=== PATIENT | male | born 1935 | race Caucasian/White ===

== ENCOUNTER 2016-06-28 08:04 | Emergency (ER) | payer MEDICARE ==
[~2016-06-28] VITALS: Ht 165.1 cm; Wt 63.5 kg
[~2016-06-28 08:04] MED LIST: BABY81CH CHEW; COUM2TAB PO; DORZ1SOL2 OU; LASI20TA PO; LATA0.00 EACH EYE; LISI-360 PO; METO50CR PO; SIMV80TA PO
[2016-06-28 08:05] VITALS: BP 192/79; PULSE 80; RESP 20; TEMP 97.7; O2SAT 99
[2016-06-28] MEDS ORDERED: SODIUM CHLOR 0.9% 1000 ML INJ 1,000 ML IV SCH (08:24)
[2016-06-28] MEDS ORDERED: SODIUM CHLORIDE 0.9% FLUSH 10 ML FLUSH IV FLUSH PRN (08:30)
[2016-06-28] MEDS ORDERED: LISI10TA3 PO (08:33)
[2016-06-28] MEDS ORDERED: COUM2TAB PO (08:33)
[2016-06-28] MEDS ORDERED: FURO1TAB62 PO (08:33)
[2016-06-28] MEDS ORDERED: ASPI1TAB69 PO (08:33)
[2016-06-28 08:54] LABS: AUTOMATED NEUTROPHIL # 3.3 TH/MM3 (1.8-7.7); BASOPHIL % 0.9 % (0.0-2.0); EOSINOPHIL # 0.3 TH/MM3 (0-0.4); EOSINOPHIL % 5.1 % (0.0-4.0); HEMATOCRIT 34.3 % (39.0-51.0); HEMO FLAGS DIFF FINAL; LYMPH % 17.9 % (9.0-44.0); LYMPHOCYTE # 0.9 TH/MM3 (1.0-4.8); MEAN CELL VOLUME 96.4 FL (80.0-100.0); MEAN CORPUSCULAR HEMOGLOBIN 33.2 PG (27.0-34.0); MEAN CORPUSCULAR HGB CONC 34.5 % (32.0-36.0); MONO % 9.1 % (0.0-8.0); PLATELET COUNT 132 TH/MM3 (150-450); RED BLOOD COUNT 3.56 MIL/MM3 (4.50-5.90); RED CELL DISTRIBUTION WIDTH 13.8 % (11.6-17.2); WHITE BLOOD COUNT 4.9 TH/MM3 (4.0-11.0)
[2016-06-28 09:03] LABS: INTERNATIONAL NORMALIZED RATIO 1.1 RATIO; PROTHROMBIN TIME - PATIENT 12.2 SEC (9.8-11.6)
--- NOTE | 2016-06-28 09:03 | PD ---
HPI Chief Complaint: Abdominal Pain Time Seen by Provider: 08:53 Travel History International Travel<30 days: No Contact w/Intl Traveler<30days: No Traveled to known affect area: No History of Present Illness HPI Patient is an 81-year-old male who presents to emergency room with complaints of abdominal pain. Patient reports that for the past week, he has been having intermittent right lower quadrant abdominal pain, reports that when he has these symptoms, symptoms feel like a sharp and stabbing sensation which last for a few seconds at a time and resolves on its own. Patient denies any fevers or chills. Patient denies any nausea or vomiting. Patient denies constipation or diarrhea, reports that he did have a normal bowel movement today. Patient denies dysuria, urinary urgency or frequency or hematuria. Denies any trauma to his abdomen. PFSH Past Medical History Blood Disorders: No Heart Rhythm Problems: Yes (A-FIB) Cancer: No Cardiovascular Problems: Yes (PACEMAKER) High Cholesterol: Yes Chest Pain: Yes Congestive Heart Failure: No Cerebrovascular Accident: No Diabetes: No Endocrine: Yes Gastrointestinal Disorders: No GERD: Yes Glaucoma: Yes Genitourinary: No Hepatitis: No Hiatal Hernia: No Hypertension: Yes Immune Disorder: No Musculoskeletal: No Neurologic: No Psychiatric: No Reproductive: No Respiratory: No Migraines: No Myocardial Infarction: Yes Seizures: No Sleep Apnea: Yes (POSS. SLEEP APNEA/NEVER HAD WORK UP/NO CPAP) Thyroid Disease: No Past Surgical History Abdominal Surgery: No AICD: Yes (MEDTRONIC) Arteriovenous Shunt: No Cardiac Surgery: Yes (CABG, AVR, AICD IMPL.) Ear Surgery: No Endocrine Surgery: No Eye Surgery: Yes (RIGHT EYE CATARACT EXTRACT) Genitourinary Surgery: No Gynecologic Surgery: No Insulin Pump: No Joint Replacement: No Oral Surgery: No Pacemaker: No Thoracic Surgery: No Social History Alcohol Use: Yes Tobacco Use: No (SMOKED 2 PKS. CIGS [id number] QUIT 1994) Substance Use: No Allergies-Medications (Allergen,Severity, Reaction): Coded Allergies: No Known Allergies (Verified , 06/28/16) Reported Meds & Prescriptions Reported Meds & Active Scripts Active Reported Lisinopril 10 Mg Tab 10 Mg PO DAILY Lasix (Furosemide) 20 Mg Tab 20 Mg PO DAILY Coumadin (Warfarin) 2 Mg Tab 2 Mg PO DAILY Aspirin 81 Mg Tabdr 81 Mg PO DAILY Review of Systems General / Constitutional: No: Fever Eyes: No: Visual changes HENT: No: Headaches Cardiovascular: No: Chest Pain or Discomfort Respiratory: No: Shortness of Breath Gastrointestinal: Positive: Abdominal Pain, No: Nausea, Vomiting, Diarrhea, Constipation Genitourinary: No: Urgency, Frequency, Dysuria, Nocturia, Hematuria, Hesitancy , Flank Pain, Discharge Musculoskeletal: No: Pain Skin: No Rash Neurologic: No: Weakness Psychiatric: No: Depression Endocrine: No: Polydipsia Hematologic/Lymphatic: No: Easy Bruising Physical Exam Narrative GENERAL: No acute distress, nontoxic SKIN: Focused skin assessment warm/dry. HEAD: Atraumatic. Normocephalic. EYES: Pupils equal and round. No injection or drainage. ENT: No nasal bleeding or discharge. Mucous membranes pink and moist. NECK: Trachea midline. No JVD. CARDIOVASCULAR: Regular rate and rhythm. No murmur appreciated. RESPIRATORY: No accessory muscle use. Clear to auscultation. Breath sounds equal bilaterally. GASTROINTESTINAL: Abdomen soft, mildly tender to right lower quadrant, no peritoneal signs MUSCULOSKELETAL: No obvious deformities. No clubbing. No cyanosis. No edema. NEUROLOGICAL: Awake and alert. No obvious cranial nerve deficits. Motor grossly within normal limits. Normal speech. PSYCHIATRIC: Appropriate mood and affect; insight and judgment normal. Data Data Last Documented VS Vital Signs Date Time Temp Pulse Resp B/P Pulse Ox O2 Delivery O2 Flow Rate FiO2 06/28/16 10:00 97.8 72 17 157/78 99 Room Air Orders Complete Blood Count With Diff (06/28/16 08:24) Comprehensive Metabolic Panel (06/28/16 08:24) Lipase (06/28/16 08:24) Prothrombin Time / Inr (Pt) (06/28/16 08:24) Act Partial Throm Time (Ptt) (06/28/16 08:24) Urinalysis - C+S If Indicated (06/28/16 08:24) Iv Access Insert/Monitor (06/28/16 08:24) Ecg Monitoring (06/28/16 08:24) Sodium Chlor 0.9% 1000 Ml Inj (Ns 1000 M (06/28/16 08:24) Sodium Chloride 0.9% Flush (Ns Flush) (06/28/16 08:30) Ct Abd/Pel W Iv Contrast(Rout) (06/28/16 08:58) Iohexol 350 Inj (Omnipaque 350 Inj) (06/28/16 10:51) Labs Laboratory Tests Test 06/28/16 06/28/16 08:30 10:00 White Blood Count 4.9 TH/MM3 Red Blood Count 3.56 MIL/MM3 Hemoglobin 11.8 GM/DL Hematocrit 34.3 % Mean Corpuscular Volume 96.4 FL Mean Corpuscular Hemoglobin 33.2 PG Mean Corpuscular Hemoglobin 34.5 % Concent Red Cell Distribution Width 13.8 % Platelet Count 132 TH/MM3 Mean Platelet Volume 8.0 FL Neutrophils (%) (Auto) 67.0 % Lymphocytes (%) (Auto) 17.9 % Monocytes (%) (Auto) 9.1 % Eosinophils (%) (Auto) 5.1 % Basophils (%) (Auto) 0.9 % Neutrophils # (Auto) 3.3 TH/MM3 Lymphocytes # (Auto) 0.9 TH/MM3 Monocytes # (Auto) 0.5 TH/MM3 Eosinophils # (Auto) 0.3 TH/MM3 Basophils # (Auto) 0.0 TH/MM3 CBC Comment DIFF FINAL Differential Comment Prothrombin Time 12.2 SEC Prothromb Time International 1.1 RATIO Ratio Activated Partial 27.0 SEC Thromboplast Time Sodium Level 140 MEQ/L Potassium Level 4.0 MEQ/L Chloride Level 107 MEQ/L Carbon Dioxide Level 24.6 MEQ/L Anion Gap 8 MEQ/L Blood Urea Nitrogen 19 MG/DL Creatinine 1.48 MG/DL Estimat Glomerular Filtration 46 ML/MIN Rate Random Glucose 111 MG/DL Calcium Level 9.1 MG/DL Total Bilirubin 1.4 MG/DL Aspartate Amino Transf 22 U/L (AST/SGOT) Alanine Aminotransferase 16 U/L (ALT/SGPT) Alkaline Phosphatase 128 U/L Total Protein 7.6 GM/DL Albumin 4.0 GM/DL Lipase 352 U/L Urine Color YELLOW Urine Turbidity CLEAR Urine pH 6.0 Urine Specific [place] 1.014 Urine Protein TRACE mg/dL Urine Glucose (UA) NEG mg/dL Urine Ketones NEG mg/dL Urine Occult Blood NEG Urine Nitrite NEG Urine Bilirubin NEG Urine Urobilinogen LESS THAN 2.0 MG/DL Urine Leukocyte Esterase NEG Urine RBC 1 /hpf Urine WBC 1 /hpf Urine Hyaline Casts 4 /lpf Urine Mucus FEW /lpf Microscopic Urinalysis Comment CULT NOT INDICATED MDM Medical Decision Making Medical Screen Exam Complete: Yes Emergency Medical Condition: Yes Interpretation(s) Vital Signs Date Time Temp Pulse Resp B/P Pulse Ox O2 Delivery O2 Flow Rate FiO2 06/28/16 08:05 97.7 80 20 192/79 99 Room Air Differential Diagnosis Appendicitis, gastroenteritis, colitis, diverticulitis, electrolyte abnormality Narrative Course Patient is an 81-year-old male who presents to emergency room with complaints of right lower quadrant abdominal pain for the past week. Patient reports that he's been having intermittent pain to right lower quadrant, reports no nausea, vomiting or diarrhea symptoms. Denies any dysuria, urinary urgency or frequency. Patient reports that when he has these pains, this takes his breath away. Patient comfortable at this time. Plan to lab work including a CT of his abdomen and pelvis to evaluate etiology of abdominal pain. Plan to hydrate patient and give antiemetics. Will continue to monitor patient Laboratory Tests Test 06/28/16 06/28/16 08:30 10:00 White Blood Count 4.9 TH/MM3 (4.0-11.0) Red Blood Count 3.56 MIL/MM3 (4.50-5.90) Hemoglobin 11.8 GM/DL (13.0-17.0) Hematocrit 34.3 % (39.0-51.0) Mean Corpuscular Volume 96.4 FL (80.0-100.0) Mean Corpuscular Hemoglobin 33.2 PG (27.0-34.0) Mean Corpuscular Hemoglobin 34.5 % Concent (32.0-36.0) Red Cell Distribution Width 13.8 % (11.6-17.2) Platelet Count 132 TH/MM3 (150-450) Mean Platelet Volume 8.0 FL (7.0-11.0) Neutrophils (%) (Auto) 67.0 % (16.0-70.0) Lymphocytes (%) (Auto) 17.9 % (9.0-44.0) Monocytes (%) (Auto) 9.1 % (0.0-8.0) Eosinophils (%) (Auto) 5.1 % (0.0-4.0) Basophils (%) (Auto) 0.9 % (0.0-2.0) Neutrophils # (Auto) 3.3 TH/MM3 (1.8-7.7) Lymphocytes # (Auto) 0.9 TH/MM3 (1.0-4.8) Monocytes # (Auto) 0.5 TH/MM3 (0-0.9) Eosinophils # (Auto) 0.3 TH/MM3 (0-0.4) Basophils # (Auto) 0.0 TH/MM3 (0-0.2) CBC Comment DIFF FINAL Differential Comment Prothrombin Time 12.2 SEC (9.8-11.6) Prothromb Time International 1.1 RATIO Ratio Activated Partial 27.0 SEC Thromboplast Time (24.3-30.1) Sodium Level 140 MEQ/L (136-145) Potassium Level 4.0 MEQ/L (3.5-5.1) Chloride Level 107 MEQ/L (98-107) Carbon Dioxide Level 24.6 MEQ/L (21.0-32.0) Anion Gap 8 MEQ/L (5-15) Blood Urea Nitrogen 19 MG/DL (7-18) Creatinine 1.48 MG/DL (0.60-1.30) Estimat Glomerular Filtration 46 ML/MIN (>89) Rate Random Glucose 111 MG/DL (74-106) Calcium Level 9.1 MG/DL (8.5-10.1) Total Bilirubin 1.4 MG/DL (0.2-1.0) Aspartate Amino Transf 22 U/L (15-37) (AST/SGOT) Alanine Aminotransferase 16 U/L (12-78) (ALT/SGPT) Alkaline Phosphatase 128 U/L (45-117) Total Protein 7.6 GM/DL (6.4-8.2) Albumin 4.0 GM/DL (3.4-5.0) Lipase 352 U/L (73-393) Urine Color YELLOW (YELLW/STRAW) Urine Turbidity CLEAR (CLEAR) Urine pH 6.0 (5.0-8.5) Urine Specific [place] 1.014 (1.002-1.035) Urine Protein TRACE mg/dL (NEG-TRACE) Urine Glucose (UA) NEG mg/dL (NEG) Urine Ketones NEG mg/dL (NEG) Urine Occult Blood NEG (NEG) Urine Nitrite NEG (NEG) Urine Bilirubin NEG (NEG) Urine Urobilinogen LESS THAN 2.0 MG/DL (LESS THAN 2.0) Urine Leukocyte Esterase NEG (NEG) Urine RBC 1 /hpf (0-3) Urine WBC 1 /hpf (0-5) Urine Hyaline Casts 4 /lpf (RARE) Urine Mucus FEW /lpf (OCC) Microscopic Urinalysis Comment CULT NOT INDICATED CBC WBC 4.9 Hemoglobin 11.8 Hematocrit 34.3 Platelets 132 Sodium 140 Chloride 107 Potassium 4.0 BUN 19 Creatinine 1.48 Glucose 111 Alkaline phosphatase [address] of the abdomen and pelvis with IV contrast shows: Moderate bilateral pleural effusions as well as atelectasis versus consolidation the lung bases. Patient with no cough or congestion or no fevers or chills or elevated wbc, most likely atelectasis at lung bases. There are small 2-3 mm nonobstructing bilateral renal stones seen. Prostate enlargement Mild thickening of urine by secondary to lack of full distention UA: Negative for ketones, negative for nitrites, negative for leuk esterase, 1 WBC Patient nontoxic on evaluation, reviewed all labs and all studies patient in detail. A copy patient CT report was given to him for follow-up with his primary care doctor. Signs and symptoms of acute abdomen was reviewed patient in detail. Patient will return to emergency room if he develops return of abdominal pain or if he develops fevers or chills nausea or vomiting. Abdomen is soft, nontender, nondistended, no peritoneal signs on discharge. Diagnosis Primary Impression: Abdominal pain Additional Impressions: Pleural effusion Renal insufficiency Patient Instructions: General Instructions Additional Instructions: Please follow-up with your primary care doctor in 2-3 days Return to the emergency room if symptoms return Return to emergency medicated Please bring your CT radiology report to doctor's office for follow-up Disposition: 01 DISCHARGE HOME Condition: Stable Aarti Reddy DO Jun 28, 2016 09:03
[2016-06-28 09:31] LABS: ANION GAP 8 MEQ/L (5-15); AST (GOT) 22 U/L (15-37); BICARBONATE 24.6 MEQ/L (21.0-32.0); BLOOD UREA NITROGEN 19 MG/DL (7-18); CHLORIDE 107 MEQ/L (98-107); GLOMERULAR FILTRATION RATE 46 ML/MIN (>89); SODIUM (NA) 140 MEQ/L (136-145)
[2016-06-28 09:34] LABS: ALKALINE PHOSPHATASE 128 U/L (45-117); ALT (GPT) 16 U/L (12-78); TOTAL BILIRUBIN ADULT 1.4 MG/DL (0.2-1.0)
[2016-06-28 10:00] VITALS: BP 157/78; PULSE 72; RESP 17; TEMP 97.8; O2SAT 99
[2016-06-28 10:15] LABS: BLOOD, URINE NEG (NEG); GLUCOSE,URINE NEG (NEG); HYALINE CAST, URINE 4 /lpf (RARE); KETONE, URINE NEG (NEG); MUCUS URINE FEW /lpf (OCC); NITRITE,URINE NEG (NEG); URINE COLOR YELLOW (YELLW/STRAW)
[2016-06-28 10:16] LABS: COMMENT (UR) CULT NOT INDICATED; CULTURE IF INDICATED CULT NOT INDICATED
[2016-06-28] MEDS ORDERED: IOHEXOL 350 MG/ML 10 ML VIAL (for RAD DIAG) IV ONE (10:51)
--- NOTE | 2016-06-28 11:13 | RADRPT ---
EXAM DATE/TIME: 06/28/2016 10:17 [facility] COMPARISON: No previous studies available for comparison. INDICATIONS : Right lower pain for three days. IV CONTRAST: 100 cc Omnipaque 350 (iohexol) IV ORAL CONTRAST: No oral contrast ingested. RADIATION DOSE: 12.24 CTDIvol (mGy) MEDICAL HISTORY : Cardiovascular disease. SURGICAL HISTORY : Pacemaker. ENCOUNTER: Initial ACUITY: 1 day PAIN SCALE: 4/10 LOCATION: Bilateral abdomen. TECHNIQUE: Volumetric scanning of the abdomen and pelvis was performed. Using automated exposure control and ad justment of the mA and/or kV according to patient size, radiation dose was kept as low as reasonably achievable to obtain optimal diagnostic quality images. FINDINGS: LOWER CHEST: There are moderate bilateral pleural effusions. There is accompanying atelectasis or consolidation at the lung bases. The patient is status post sternotomy. 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 There is a pacemaker. LIVER: Homogeneous density without lesion. There is no dilation of the biliary tree. There are calcified ga llstones. SPLEEN: Normal size without lesion. PANCREAS: Within normal limits. KIDNEYS: Normal in size and shape. There is no mass or hydronephrosis. There are small 2-3 mm nonobstructing bilateral renal stones seen. ADRENAL GLANDS: Within normal limits. VASCULAR: There is no aortic aneurysm. BOWEL/MESENTERY: The stomach, small bowel, and colon demonstrate no acute abnormality. There is no free intraperitone al air or fluid. Bowel is seen around the anterior and right lateral aspect of the liver. Bowel dilat ation is not seen. ABDOMINAL WALL: Within normal limits. RETROPERITONEUM: There is no lymphadenopathy. BLADDER: The urinary bladder is diffusely thickened. This may be secondary to lack of distention. REPRODUCTIVE: The prostate appears enlarged. INGUINAL: There is no lymphadenopathy or hernia. MUSCULOSKELETAL: Within normal limits for patient age. CONCLUSION: 1. No acute abnormality seen. The cause of the right lower quadrant pain is not identified. 2. Small non-obstructing renal stones. 3. Bilateral moderate pleural effusions. 4. Prostatic enlargement. 5. Mild thickening of the urinary bladder likely secondary to lack of full distention. Charles Galvez MD on June 28, 2016 at 11:02 Board Certified Radiologist. This report was verified electronically.
[2016-06-28 11:55] VITALS: BP 140/77; TEMP 97.8
== END 2016-06-28 12:39 | disposition home or self-care (01) ==
LOC: NEPC 08:04
DX: R10.31 Right lower quadrant pain (principal); J90 Pleural effusion, not elsewhere classified; N28.9 Disorder of kidney and ureter, unspecified; I48.91 Unspecified atrial fibrillation; Z95.0 Presence of cardiac pacemaker; I10 Essential (primary) hypertension
CPT/HCPCS: 74177; 80053; 81001; 83690; 85025; 85610; 85730; 96360; 99284; J7030; Q9967